=== PATIENT | male | born 1940 | race Caucasian/White ===

== ENCOUNTER 2017-02-22 21:10 | Observation (INO) | payer MEDICARE, BC ==
[~2017-02-22] VITALS: Ht 175.3 cm; Wt 95.0 kg
[2017-02-22 21:13] VITALS: BP 161/75; PULSE 62; RESP 16; TEMP 97.9; O2SAT 97
--- NOTE | 2017-02-22 22:10 | RADRPT ---
EXAM DATE/TIME: 02/22/2017 21:48 [facility] COMPARISON: No previous studies available for comparison. INDICATIONS : Shortness of breath. MEDICAL HISTORY : Diabetes mellitus type II. Hypertension Atrial fibrillation SURGICAL HISTORY : Pacemaker. ENCOUNTER: Initial ACUITY: 1 day PAIN SCORE: 0/10 LOCATION: Bilateral chest. FINDINGS: There is a tiny nodular density in the right mid chest possibly in the bony structures or may be a luann ng nodule. It measures 6 mm. Slight atelectasis is seen in the left lung base. Left subclavian pacer wires are present with tips in the right atrium and right ventricle. Heart and mediastinum are unrema rkable for technique. There are atherosclerotic calcifications of the aorta due to chronic atheroscle rotic disease. CONCLUSION: Possible right lung nodule and noncontrast chest CT is suggested to further characterize. Chayo Jimenez MD on February 22, 2017 at 22:06 Board Certified Radiologist. This report was verified electronically.
[2017-02-22 22:11] VITALS: O2SAT 98
--- NOTE | 2017-02-22 22:12 | PD ---
HPI Chief Complaint: Altered Mental Status Time Seen by Provider: 21:30 Travel History International Travel<30 days: No Contact w/Intl Traveler<30days: No Traveled to known affect area: No History of Present Illness HPI 76-year-old male presents emergency department for evaluation after patient's daughter reported him having a short transient episode of not responding verbally while watching television this evening. Patient's daughter describes him as blank staring during that episode. Patient's daughter states the episode only lasted a minute. The episode resolved spontaneously and the patient denies any pain or abnormal feeling at this time. Patient is visiting here from [place] for the holiday. Patient states that last and is planning on flying back again this . Patient denies any chest pain, shortness breath, fevers, chills, malaise, abdominal pain, nausea, vomiting, diarrhea, lightheadedness or headache. Patient denies any hematuria or dysuria. Patient has medical history of hypertension, diabetes, diabetic neuropathy. Patient had recently had a pacemaker placed in his left upper chest 2 months ago. PFSH Past Medical History Hx Anticoagulant Therapy: Yes (ELIQUIS ) Atrial Fibrillation: Yes COPD: Yes Diabetes: Yes Patient Takes Glucophage: Yes Hypertension: Yes Past Surgical History AICD: Yes Appendectomy: Yes Cardiac Surgery: Yes (AICD ) Cholecystectomy: Yes Genitourinary Surgery: Yes (BLADDER CA ) Tonsillectomy: Yes Social History Alcohol Use: No Tobacco Use: No Substance Use: No Allergies-Medications (Allergen,Severity, Reaction): Coded Allergies: No Known Allergies (Unverified , 02/22/17) Review of Systems Except as stated in HPI: all other systems reviewed are Neg Physical Exam Narrative GENERAL: Well-nourished, well-developed 76-year-old male in no acute distress. Nontoxic appearing. SKIN: Focused skin assessment warm/dry. HEAD: Atraumatic. Normocephalic. EYES: Pupils equal and round. No scleral icterus. No injection or drainage. ENT: No nasal bleeding or discharge. Mucous membranes pink and moist. NECK: Trachea midline. No JVD. CARDIOVASCULAR: Regular rate and rhythm. No murmur appreciated. RESPIRATORY: No accessory muscle use. Clear to auscultation. Breath sounds equal bilaterally. GASTROINTESTINAL: Abdomen soft, non-tender, nondistended. Hepatic and splenic margins not palpable. MUSCULOSKELETAL: No obvious deformities. No clubbing. No cyanosis. No edema. NEUROLOGICAL: Awake and alert. No obvious cranial nerve deficits. Motor grossly within normal limits. Normal speech. PSYCHIATRIC: Appropriate mood and affect; insight and judgment normal. Data Data Last Documented VS Vital Signs Date Time Temp Pulse Resp B/P (MAP) Pulse Ox O2 Delivery O2 Flow Rate FiO2 02/22/17 22:11 98 Room Air 02/22/17 21:13 97.9 62 16 Orders Orders Electrocardiogram (02/22/17 21:38) Prothrombin Time / Inr (Pt) (02/22/17 21:38) Act Partial Throm Time (Ptt) (02/22/17 21:38) Complete Blood Count With Diff (02/22/17 21:38) Comprehensive Metabolic Panel (02/22/17 21:38) Troponin I (02/22/17 21:38) Urinalysis - C+S If Indicated (02/22/17 21:38) Ct Brain W/O Iv Contrast(Rout) (02/22/17 21:38) Chest, Single Ap (02/22/17 21:38) Ecg Monitoring (02/22/17 21:38) Iv Access Insert/Monitor (02/22/17 21:38) Oximetry (02/22/17 21:38) Blood Glucose (02/22/17 21:38) Admit Order (Ed Use Only) (02/22/17 23:13) Labs Laboratory Tests Test 02/22/17 21:52 White Blood Count 4.4 TH/MM3 Red Blood Count 3.82 MIL/MM3 Hemoglobin 11.5 GM/DL Hematocrit 34.6 % Mean Corpuscular Volume 90.7 FL Mean Corpuscular Hemoglobin 30.1 PG Mean Corpuscular Hemoglobin Concent 33.2 % Red Cell Distribution Width 14.3 % Platelet Count 145 TH/MM3 Mean Platelet Volume 9.6 FL Neutrophils (%) (Auto) 51.4 % Lymphocytes (%) (Auto) 31.6 % Monocytes (%) (Auto) 10.7 % Eosinophils (%) (Auto) 4.9 % Basophils (%) (Auto) 1.4 % Neutrophils # (Auto) 2.3 TH/MM3 Lymphocytes # (Auto) 1.4 TH/MM3 Monocytes # (Auto) 0.5 TH/MM3 Eosinophils # (Auto) 0.2 TH/MM3 Basophils # (Auto) 0.1 TH/MM3 CBC Comment DIFF FINAL Differential Comment Prothrombin Time 10.1 SEC Prothromb Time International Ratio 1.0 RATIO Activated Partial Thromboplast Time 23.5 SEC Urine Color YELLOW Urine Turbidity CLEAR Urine pH 5.5 Urine Specific [place] 1.013 Urine Protein NEG mg/dL Urine Glucose (UA) 300 mg/dL Urine Ketones NEG mg/dL Urine Occult Blood NEG Urine Nitrite NEG Urine Bilirubin NEG Urine Urobilinogen LESS THAN 2.0 MG/DL Urine Leukocyte Esterase TRACE Urine WBC 3 /hpf Microscopic Urinalysis Comment CATH-CULT NOT IND Blood Urea Nitrogen 30 MG/DL Creatinine 1.26 MG/DL Random Glucose 175 MG/DL Total Protein 6.5 GM/DL Albumin 3.2 GM/DL Calcium Level 8.6 MG/DL Alkaline Phosphatase 76 U/L Aspartate Amino Transf (AST/SGOT) 12 U/L Alanine Aminotransferase (ALT/SGPT) 20 U/L Total Bilirubin 0.3 MG/DL Sodium Level 141 MEQ/L Potassium Level 4.3 MEQ/L Chloride Level 104 MEQ/L Carbon Dioxide Level 32.3 MEQ/L Anion Gap 5 MEQ/L Estimat Glomerular Filtration Rate 55 ML/MIN Troponin I LESS THAN 0.02 NG/ML MDM Medical Decision Making Medical Screen Exam Complete: Yes Emergency Medical Condition: Yes Differential Diagnosis Differential diagnoses include but not limited to electrolyte abnormality, TIA/ CVA, absence seizure, hypoglycemia Narrative Course Patient placed on monitor and IV obtained. Blood work sent to lab. CBC, CMP, PT/INR and UA ordered and pending. EKG ordered and interpreted. Chest x-ray ordered and pending. CT of the brain ordered and pending. Bedside blood glucose shows 221 CBC shows mild anemia hemoglobin 11.5 CMP shows been in 30, GFR 55, AST 12, glucose 175, hypoalbuminemia 3.2 Troponin less than 0.02 UA shows glucose in the urine and trace esterase Chest x-ray shows possible right lung nodule with recommendation for noncontrast CT for follow-up. CT of the brain shows arachnoid cyst. Patient be admitted to the hospital as a 23 hour observation for further observation and neuro checks. OBI called for admission at this time. Dr Voss called and accepted admission. Patient admitted for obs at this time. Diagnosis Primary Impression: Arachnoid cyst Additional Impression: Transient disorientation Admitting Information Admitting Physician Requests: Observation Oralia Chung Feb 22, 2017 22:12
[2017-02-22 22:29] LABS: AUTOMATED NEUTROPHIL # 2.3 TH/MM3 (1.8-7.7); BASOPHIL # 0.1 TH/MM3 (0-0.2); BASOPHIL % 1.4 % (0.0-2.0); EOSINOPHIL # 0.2 TH/MM3 (0-0.4); EOSINOPHIL % 4.9 % (0.0-4.0); HEMATOCRIT 34.6 % (39.0-51.0); HEMOGLOBIN 11.5 GM/DL (13.0-17.0); LYMPH % 31.6 % (9.0-44.0); LYMPHOCYTE # 1.4 TH/MM3 (1.0-4.8); MEAN CELL VOLUME 90.7 FL (80.0-100.0); MEAN CORPUSCULAR HEMOGLOBIN 30.1 PG (27.0-34.0); MEAN CORPUSCULAR HGB CONC 33.2 % (32.0-36.0); MEAN PLATELET VOLUME 9.6 FL (7.0-11.0); MONO % 10.7 % (0.0-8.0); MONOCYTE # 0.5 TH/MM3 (0-0.9); NEUT % 51.4 % (16.0-70.0); PLATELET COUNT 145 TH/MM3 (150-450); RED BLOOD COUNT 3.82 MIL/MM3 (4.50-5.90); RED CELL DISTRIBUTION WIDTH 14.3 % (11.6-17.2); WHITE BLOOD COUNT 4.4 TH/MM3 (4.0-11.0)
--- NOTE | 2017-02-22 22:31 | RADRPT ---
EXAM DATE/TIME: 02/22/2017 22:20 [facility] COMPARISON: No previous studies available for comparison. INDICATIONS : Altered mental status. RADIATION DOSE: 39.62 CTDIvol (mGy) MEDICAL HISTORY : Cerebrovascular disease. Hypertension. Carcinoma, bladder.COPD Diabetes SURGICAL HISTORY : Defibrillator. Appendectomy.Cholecystectomy. ENCOUNTER: Initial ACUITY: 2 days PAIN SCALE: 0/10 LOCATION: cranial TECHNIQUE: Multiple contiguous axial images were obtained of the head. Using automated exposure control and adj ustment of the mA and/or kV according to patient size, radiation dose was kept as low as reasonably a chievable to obtain optimal diagnostic quality images. DICOM format image data is available electro nically for review and comparison. FINDINGS: There is an arachnoid cyst in the left middle cranial fossae measures 3.7 cm in AP diameter with mild mass effect on the adjacent temporal lobe. There is no evidence for intracranial hemorrhage, edema, or extra-axial fluid collections. The visualized bony structures appear intact. The ventricles are normal size for the patient's age. There are no signs of acute infarction for technique. CONCLUSION: Arachnoid cyst. Chayo Jimenez MD on February 22, 2017 at 22:28 Board Certified Radiologist. This report was verified electronically.
[2017-02-22 22:33] LABS: BILIRUBIN, URINE NEG (NEG); BLOOD, URINE NEG (NEG); GLUCOSE,URINE 300 mg/dL (NEG); KETONE, URINE NEG (NEG); NITRITE,URINE NEG (NEG); PH, URINE 5.5 (5.0-8.5); URINE COLOR YELLOW (YELLW/STRAW); URINE LEUKOCYTE ESTERASE TRACE (NEG)
[2017-02-22 22:38] LABS: ALBUMIN 3.2 GM/DL (3.4-5.0); ALT (GPT) 20 U/L (12-78); AST (GOT) 12 U/L (15-37); BICARBONATE 32.3 MEQ/L (21.0-32.0); BLOOD UREA NITROGEN 30 MG/DL (7-18); CALCIUM 8.6 MG/DL (8.5-10.1); CHLORIDE 104 MEQ/L (98-107); CREATININE 1.26 MG/DL (0.60-1.30); GLOMERULAR FILTRATION RATE 55 ML/MIN (>89); GLUCOSE,RANDOM 175 MG/DL (74-106); SODIUM (NA) 141 MEQ/L (136-145)
[2017-02-22 22:42] LABS: ALKALINE PHOSPHATASE 76 U/L (45-117); TOTAL BILIRUBIN ADULT 0.3 MG/DL (0.2-1.0); TOTAL PROTEIN 6.5 GM/DL (6.4-8.2); TROPONIN I LESS THAN 0.02 NG/ML (0.02-0.05)
[2017-02-22 22:51] LABS: PROTHROMBIN TIME - PATIENT 10.1 SEC (9.8-11.6)
[2017-02-22] MEDS ORDERED: ACETAMINOPHEN 325 MG TAB PO PRN (23:45)
[2017-02-22] MEDS ORDERED: MAGNESIUM HYDROXIDE SUSP 30 ML CUP PO PRN (23:45)
[2017-02-22] MEDS ORDERED: BISACODYL 10 MG SUPP RECTAL PRN (23:45)
[2017-02-22] MEDS ORDERED: ONDANSETRON HCL 4 MG/2 ML VIAL IVP PRN (23:45)
[2017-02-22] MEDS ORDERED: SODIUM CHLORIDE 0.9% FLUSH 10 ML FLUSH IV FLUSH PRN (23:45)
[2017-02-22] MEDS ORDERED: LACTULOSE SYRUP 20 GM/30 ML CUP PO PRN (23:45)
[2017-02-22] MEDS ORDERED: SENNOSIDES 8.6 MG TAB PO PRN (23:45)
[2017-02-22] MEDS ORDERED: NALOXONE HCL 0.4 MG/ML AMP IV PUSH PRN (23:45)
--- NOTE | 2017-02-22 23:57 | HHI.HP ---
[facility] Unknown Admission Diagnosis arachnoid cyst, transient disorientation Diagnoses: Travel History International Travel<30 Days: No Contact w/Intl Traveler <30 Da: No Traveled to Known Affected Are: No History of Present Illness 76-year-old male with a past medical history of CHF (unknown EF), CAD, A. fib anticoagulated on all of this, insulin-dependent diabetes mellitus, and history of alcohol abuse presents to the emergency department for evaluation of seizure- like activity and altered mental status. The patient's daughter reports that she was sitting with the patient on the couch watching television when she started to notice his right arm becoming tremulous and shaking. He then had what she described as "post ictal-like behavior" with altered mental status and confusion that lasted approximately 20 minutes. The patient has no memory of the event. No loss of bowel or bladder function. He has never had an incident like this before. Head CT was significant for an arachnoid cyst in the left middle cranial fossa measuring 3.7 cm in diameter with mild mass effect on the adjacent temporal lobe. Review of Systems Denies fever or chills Denies blurry vision, otorrhea, rhinorrhea Denies sore throat and cough No chest pain, palpitations, shortness of breath No abdominal pain Denies constipation/diarrhea/nausea/vomiting Denies muscle pain/weakness No rashes Past Family Social History Past Medical History CHF with AICD placement 2 months ago, EF unknown CAD A. fib anticoagulated on Toby was Insulin-dependent diabetes mellitus History of bladder and prostate cancer History of alcohol abuse Past Surgical History Cholecystectomy Appendectomy Resection of bladder tumor AICD placement 2 months ago Allergies: Coded Allergies: No Known Allergies (Unverified , 02/22/17) Family History Unknown by patient Social History Patient reports that he quit drinking approximately 6 months ago. His daughter reports this is not the case and that the patient still drinks. Quit tobacco 12 years ago. Denies illicit drugs. Patient and his live in [place]. Physical Exam Vital Signs Vital Signs Date Time Temp Pulse Resp B/P (MAP) Pulse Ox O2 Delivery O2 Flow Rate FiO2 02/22/17 22:11 98 Room Air 02/22/17 21:13 97.9 62 16 161/75 (103) 97 Room Air Physical Exam GENERAL: male lying in bed SKIN: No rashes, ecchymoses or lesions. Cool and dry. HEAD: Atraumatic. Normocephalic. No temporal or scalp tenderness. EYES: Pupils equal round and reactive. Extraocular motions intact. No scleral icterus. No injection or drainage. ENT: Nose without bleeding, purulent drainage or septal hematoma. Throat without erythema, tonsillar hypertrophy or exudate. Uvula midline. Airway patent. NECK: Trachea midline. No JVD or lymphadenopathy. Supple, nontender, no meningeal signs. CARDIOVASCULAR: Regular rate and rhythm without murmurs, gallops, or rubs. RESPIRATORY: Clear to auscultation. Breath sounds equal bilaterally. No wheezes , rales, or rhonchi. GASTROINTESTINAL: Abdomen soft, non-tender, nondistended. No hepato-splenomegaly , or palpable masses. No guarding. MUSCULOSKELETAL: Extremities without clubbing, cyanosis, or edema. No joint tenderness, effusion, or edema noted. No calf tenderness. NEUROLOGICAL: Awake and alert. Cranial nerves II through XII intact. Motor and sensory within normal limits. Five out of 5 muscle strength in all muscle groups. Normal speech. Laboratory Laboratory Tests Test 02/22/17 21:52 White Blood Count 4.4 Red Blood Count 3.82 Hemoglobin 11.5 Hematocrit 34.6 Mean Corpuscular Volume 90.7 Mean Corpuscular Hemoglobin 30.1 Mean Corpuscular Hemoglobin Concent 33.2 Red Cell Distribution Width 14.3 Platelet Count 145 Mean Platelet Volume 9.6 Neutrophils (%) (Auto) 51.4 Lymphocytes (%) (Auto) 31.6 Monocytes (%) (Auto) 10.7 Eosinophils (%) (Auto) 4.9 Basophils (%) (Auto) 1.4 Neutrophils # (Auto) 2.3 Lymphocytes # (Auto) 1.4 Monocytes # (Auto) 0.5 Eosinophils # (Auto) 0.2 Basophils # (Auto) 0.1 CBC Comment DIFF FINAL Differential Comment Prothrombin Time 10.1 Prothromb Time International Ratio 1.0 Activated Partial Thromboplast Time 23.5 Urine Color YELLOW Urine Turbidity CLEAR Urine pH 5.5 Urine Specific [place] 1.013 Urine Protein NEG Urine Glucose (UA) 300 Urine Ketones NEG Urine Occult Blood NEG Urine Nitrite NEG Urine Bilirubin NEG Urine Urobilinogen LESS THAN 2.0 Urine Leukocyte Esterase TRACE Urine WBC 3 Microscopic Urinalysis Comment CATH-CULT NOT IND Blood Urea Nitrogen 30 Creatinine 1.26 Random Glucose 175 Total Protein 6.5 Albumin 3.2 Calcium Level 8.6 Alkaline Phosphatase 76 Aspartate Amino Transf (AST/SGOT) 12 Alanine Aminotransferase (ALT/SGPT) 20 Total Bilirubin 0.3 Sodium Level 141 Potassium Level 4.3 Chloride Level 104 Carbon Dioxide Level 32.3 Anion Gap 5 Estimat Glomerular Filtration Rate 55 Troponin I LESS THAN 0.02 Result Diagram: 02/22/17215102/22/172151 Caprini VTE Risk Assessment Caprini VTE Risk Assessment: Mod/High Risk (score >= 2) Caprini Risk Assessment Model Point Value = 1 Point Value = 2 Point Value = 3 Point Value = 5 Age 41-60 Minor surgery BMI > 25 kg/m2 Swollen legs Varicose veins or History of unexplained or recurrent spontaneous Oral contraceptives or hormone replacement Sepsis (< 1 month) Serious lung disease, including pneumonia (< 1 month) Abnormal pulmonary function Acute myocardial infarction Congestive heart failure (< 1 month) History of inflammatory bowel disease Medical patient at bed rest Age 61-74 Arthroscopic surgery Major open surgery (> 45 min) Laparoscopic surgery (> 45 min) Malignancy Confined to bed (> 72 hours) Immobilizing plaster cast Central venous access Age >= 75 History of VTE Family history of VTE Factor V Leiden Prothrombin [id number] Lupus anticoagulant Anticardiolipin antibodies Elevated serum homocysteine Heparin-induced thrombocytopenia Other congenital or acquired thrombophilia Stroke (< 1 month) Elective arthroplasty Hip, pelvis, or leg fracture Acute spinal cord injury (< 1 month) Prophylaxis Regimen Total Risk Factor Score Risk Level Prophylaxis Regimen 0-1 Low Early ambulation 2 Moderate Order ONE of the following: *Sequential Compression Device (SCD) *Heparin 5000 units SQ BID 3-4 Higher Order ONE of the following medications: *Heparin 5000 units SQ TID *Enoxaparin/Lovenox 40 mg SQ daily (WT < 150 kg, CrCl > 30 mL/min) *Enoxaparin/Lovenox 30 mg SQ daily (WT < 150 kg, CrCl > 10-29 mL/min) *Enoxaparin/Lovenox 30 mg SQ BID (WT < 150 kg, CrCl > 30 mL/min) AND/OR *Sequential Compression Device (SCD) 5 or more Highest Order ONE of the following medications: *Heparin 5000 units SQ TID (Preferred with Epidurals) *Enoxaparin/Lovenox 40 mg SQ daily (WT < 150 kg, CrCl > 30 mL/min) *Enoxaparin/Lovenox 30 mg SQ daily (WT < 150 kg, CrCl > 10-29 mL/min) *Enoxaparin/Lovenox 30 mg SQ BID (WT < 150 kg, CrCl > 30 mL/min) AND *Sequential Compression Device (SCD) Assessment and Plan Assessment and Plan Assessment/plan: 1. Altered mental status/possible seizure EEG pending Head CT significant for arachnoid cyst wild mild mass effect Neurology consulted, appreciate recommendations 2. Insulin-dependent diabetes mellitus Continue home Lantus SSI Monitor blood glucose 3. Atrial fibrillation Continue Eliquis 4. CHF/CAD Continue home medications 5. HTN Continue home medications 6. Alcohol abuse CIWA protocol Monitor for signs of withdrawal FEN Heart healthy ADA diet Electrolytes: monitor and replete prn Charo Dent MD Feb 22, 2017 23:57
[2017-02-23] MEDS ORDERED: LORazepam 1 MG TAB PO PRN
[2017-02-23] MEDS ORDERED: FLUMAZENIL 0.5 MG/5 ML VIAL IV PUSH PRN
[2017-02-23] MEDS ORDERED: DEXTROSE 50% IN WATER 50 ML VIAL(D50) IV PUSH PRN
[2017-02-23] MEDS ORDERED: LORazepam 2 MG/ML VIAL IV PUSH PRN ×4
[2017-02-23] MEDS ORDERED: GLUCAGON 1 MG/ML VIAL OTHER PRN
[2017-02-23] MEDS ORDERED: LORazepam 2 MG TAB PO PRN
[2017-02-23] MEDS ORDERED: BUME2TAB PO (00:06)
[2017-02-23] MEDS ORDERED: APIX5TAB PO (00:06)
[2017-02-23] MEDS ORDERED: AMIO0.1T PO (00:09)
[2017-02-23] MEDS ORDERED: PANT40TA3 PO (00:11)
[2017-02-23] MEDS ORDERED: PARO20TA2 PO (00:12)
[2017-02-23] MEDS ORDERED: GABA300C5 PO (00:13)
[2017-02-23] MEDS ORDERED: METF1000 PO (00:14)
[2017-02-23] MEDS ORDERED: LANTUS2P (00:15)
[2017-02-23] MEDS ORDERED: HYDR-3801 PO (00:15)
[2017-02-23] MEDS ORDERED: VALS1TAB64 PO ×2 (00:16→14:00)
[2017-02-23] MEDS ORDERED: ISOS20TA2 PO (00:16)
[2017-02-23] MEDS ORDERED: LOPE-1 PO (00:17)
[2017-02-23] MEDS ORDERED: ATOR10TA15 PO (00:17)
[2017-02-23] MEDS ORDERED: ASPI1TAB57 PO (00:18)
[2017-02-23] MEDS ORDERED: ASPI81TA81 (00:18)
[2017-02-23] MEDS ORDERED: OMEG1CAP50 (00:19)
[2017-02-23] MEDS ORDERED: CHOL5000 PO (00:20)
[2017-02-23] MEDS ORDERED: COQ150CA (00:20)
[2017-02-23] MEDS ORDERED: D 101000 (00:21)
[2017-02-23] MEDS ORDERED: TURM500C7 (00:22)
[2017-02-23 03:21] VITALS: BP 130/78; PULSE 59; RESP 18; TEMP 97.8; O2SAT 93
[2017-02-23] MEDS ORDERED: HEPARIN SODIUM - SQ 10,000 UNITS/ML VIAL SQ SCH (06:00)
[2017-02-23 07:35] VITALS: BP 166/79; PULSE 60; RESP 18; TEMP 97.5; O2SAT 96
[2017-02-23] MEDS: INSULIN ASPART SUPPLEMENTAL SCALE SQ SCH ×2 (08:00→12:57)
[2017-02-23 08:28] LABS: AUTOMATED NEUTROPHIL # 2.3 TH/MM3 (1.8-7.7); BASOPHIL # 0.1 TH/MM3 (0-0.2); BASOPHIL % 1.7 % (0.0-2.0); EOSINOPHIL # 0.2 TH/MM3 (0-0.4); EOSINOPHIL % 5.4 % (0.0-4.0); HEMATOCRIT 33.2 % (39.0-51.0); HEMOGLOBIN 11.2 GM/DL (13.0-17.0); LYMPH % 28.8 % (9.0-44.0); LYMPHOCYTE # 1.2 TH/MM3 (1.0-4.8); MEAN CELL VOLUME 91.1 FL (80.0-100.0); MEAN CORPUSCULAR HEMOGLOBIN 30.8 PG (27.0-34.0); MEAN CORPUSCULAR HGB CONC 33.8 % (32.0-36.0); MEAN PLATELET VOLUME 10.1 FL (7.0-11.0); MONO % 9.8 % (0.0-8.0); MONOCYTE # 0.4 TH/MM3 (0-0.9); NEUT % 54.3 % (16.0-70.0); PLATELET COUNT 136 TH/MM3 (150-450); RED BLOOD COUNT 3.64 MIL/MM3 (4.50-5.90); RED CELL DISTRIBUTION WIDTH 14.4 % (11.6-17.2); WHITE BLOOD COUNT 4.2 TH/MM3 (4.0-11.0)
[2017-02-23 08:54] LABS: BICARBONATE 30.3 MEQ/L (21.0-32.0); CALCIUM 8.7 MG/DL (8.5-10.1); CREATININE 1.12 MG/DL (0.60-1.30)
[2017-02-23] MEDS ORDERED: VALSARTAN 80 MG TAB PO SCH (09:00)
[2017-02-23] MEDS ORDERED: AMIODARONE 200 MG TAB PO SCH (09:00)
[2017-02-23] MEDS ORDERED: BUMETANIDE 1 MG TAB PO SCH (09:00)
[2017-02-23] MEDS ORDERED: ASPIRIN EC 81 MG TABEC PO SCH (09:00)
[2017-02-23] MEDS ORDERED: APIXABAN 5 MG TABLET PO SCH (09:00)
[2017-02-23] MEDS ORDERED: SODIUM CHLORIDE 0.9% FLUSH 10 ML FLUSH IV FLUSH SCH (09:00)
[2017-02-23] MEDS ORDERED: GABAPENTIN 300 MG CAP PO SCH (09:00)
[2017-02-23] MEDS ORDERED: hydrALAZINE HCL 50 MG TAB PO SCH (09:00)
[2017-02-23] MEDS ORDERED: DOCUSATE SODIUM 50 MG/SENNA 8.6 MG TAB PO SCH (09:00)
[2017-02-23] MEDS ORDERED: PARoxetine HCL 20 MG TAB PO SCH (09:00)
[2017-02-23] MEDS ORDERED: PANTOPRAZOLE SOD 40 MG DELAYED RELEASE TAB PO SCH (09:00)
[2017-02-23] MEDS: ISOSORBIDE DINITRATE 20 MG TAB PO SCH ×2 (10:00→13:00)
[2017-02-23] MEDS ORDERED: levETIRAcetam INJ 100 ML IV ONE (10:30)
--- NOTE | 2017-02-23 11:05 | MB ---
cc: JORDANA CHOUDHARY M.D. DATE OF CONSULTATION 02/23/2017 REASON FOR CONSULTATION The patient is a 76-year-old seen in neurological consultation in regards to an acute neurologic change. HISTORY OF PRESENT ILLNESS The patient is from [place] and is visiting here with his daughter. He was at the daughter's house yesterday when he had a sudden neurologic change. The daughter is an emt. The patient's was in the room as well and observed that he was having some flailing right upper extremity movement and seemed to be poorly responsive. The daughter observed some twitching of the upper body and the patient responsiveness seemed to be diminished. He was sort of lethargic and postictal after the event that lasted a short period of time. There was no major tonic-clonic activity. There was no incontinence. No history of seizures in the past. The patient was brought to the hospital by the family. A CT brain is showing an arachnoid cyst in the middle cranial fossa causing some mass effect mostly in the temporal lobe. PAST MEDICAL HISTORY The patient had a recent pacemaker in November 2016. He has a history of atrial fibrillation and hypertension. History of bladder and prostate cancer. He takes Eliquis and aspirin. He is also diabetic. NEUROLOGICAL EXAMINATION On exam he is awake, reasonably alert and oriented. He is a bit slow to respond and the family describes that this seems to be his baseline. His ocular movements are full. Visual murguia are full. There is no hemiparesis. No evidence of tongue injury. He has reasonable strength throughout. Reflexes are present at the elbows and knees, absent versus trace at the ankles. Plantar response is flexor bilaterally. LABORATORY DATA White count today 4.2, hemoglobin 11.2, platelets 136. INR 1.0. Sodium and potassium normal. BUN 26, creatinine 1.1. BUN was 30 yesterday and creatinine 1.26. Urinalysis is negative. IMAGING CT brain was reviewed. Chest x-ray showed possible right lung nodule. Noncontrast chest CT suggested further evaluation. 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 The CT brain shows a relatively large arachnoid cyst on the left middle cranial fossa causing some mild mass effect. There is a history of multiple medical problems and there is a possible nodule on the right lung. PLAN/RECOMMENDATIONS Neurologic-wang an EEG will be obtained and I will start him on Keppra one gram IV bolus followed by 500 mg twice a day. Will check a carotid ultrasound as well. Will let the medicine team determine the need for further chest evaluation. I have discussed this with the patient and the family and I reiterated to them that it is recommended he does not drive for at least six months as is the law in [place] and he should follow-up with his physicians in [place] as he is planning on going back to [place] later this week. I will follow the neurological course. Thank you for asking us to assist in his care. MD CAROLA Philip/BT /10:08 AM /10:34 AM
[2017-02-23 12:27] VITALS: BP 130/75; PULSE 53; RESP 18; TEMP 97.7; O2SAT 95
--- NOTE | 2017-02-23 12:28 | RADRPT ---
EXAM DATE/TIME: 02/23/2017 11:05 [facility] COMPARISON: No previous studies available for comparison. INDICATIONS : Transient ischemic attack. MEDICAL HISTORY : Hypercholesterolemia. Hypertension. Transient ischemic attack. A-fib. Diabetes. Bladder cancer. CHF . SURGICAL HISTORY : Tonsillectomy. Appendectomy. Cholecystectomy. AICD. Bladder cancer surgery. ENCOUNTER: Initial ACUITY: 1 day PAIN SCORE: 0/10 LOCATION: Bilateral neck PEAK SYSTOLIC VELOCITIES (cm/sec): ICA/CCA RATIO: Right: 1.5 Left: 0.8 ICA: Right: 116 Left: 68 CCA: Right: 80 Left: 83 ECA: Right: 161 Left: 119 VERTEBRAL: Right: 33 antegrade Left: 51 antegrade Elevated flow velocities and ICA/CCA ratios have been found to correlate with increased degrees of vessel stenosis, calculated as percentage of diameter relative to a normal segment of distal ICA/CCA FINDINGS: There is mild to moderate visible plaque formation bilaterally without evidence for hemodynamically s ignificant stenosis. Vertebral artery flow is antegrade. CONCLUSION: 1. Mild to moderate visible plaque without hemodynamically significant stenosis. Isac Joaquin MD on February 23, 2017 at 12:26 Board Certified Radiologist. This report was verified electronically.
[2017-02-23] MEDS ORDERED: ISOS60TA PO (13:55)
[2017-02-23] MEDS ORDERED: INSU1INJ5 SQ (14:00)
[2017-02-23] MEDS ORDERED: METO25TA3 PO (14:00)
[2017-02-23] MEDS ORDERED: LEVE500 PO (15:27)
--- NOTE | 2017-02-23 15:35 | HHI.DS ---
Discharge Summary Admission Date Feb 22, 2017 at 23:16 Discharge Date: Feb 23, 2017 Admitting Diagnosis arachnoid cyst, transient disorientation (1) Seizure ICD Code: R56.9 - Unspecified convulsions Diagnosis: Principal (2) Arachnoid cyst ICD Code: G93.0 - Cerebral cysts Diagnosis: Secondary Status: Acute Procedures EEG Brief History - From Admission 76-year-old male with a past medical history of CHF (unknown EF), CAD, A. fib anticoagulated on all of this, insulin-dependent diabetes mellitus, and history of alcohol abuse presents to the emergency department for evaluation of seizure- like activity and altered mental status. The patient's daughter reports that she was sitting with the patient on the couch watching television when she started to notice his right arm becoming tremulous and shaking. He then had what she described as "post ictal-like behavior" with altered mental status and confusion that lasted approximately 20 minutes. The patient has no memory of the event. No loss of bowel or bladder function. He has never had an incident like this before. Head CT was significant for an arachnoid cyst in the left middle cranial fossa measuring 3.7 cm in diameter with mild mass effect on the adjacent temporal lobe. CBC/BMP: 02/23/17 0700 02/23/17 0700 Significant Findings Laboratory Tests Test 02/22/17 21:52 02/23/17 07:00 Red Blood Count 3.82 MIL/MM3 (4.50-5.90) 3.64 MIL/MM3 (4.50-5.90) Hemoglobin 11.5 GM/DL (13.0-17.0) 11.2 GM/DL (13.0-17.0) Hematocrit 34.6 % (39.0-51.0) 33.2 % (39.0-51.0) Platelet Count 145 TH/MM3 (150-450) 136 TH/MM3 (150-450) Monocytes (%) (Auto) 10.7 % (0.0-8.0) 9.8 % (0.0-8.0) Eosinophils (%) (Auto) 4.9 % (0.0-4.0) 5.4 % (0.0-4.0) Activated Partial Thromboplast Time 23.5 SEC (24.3-30.1) Urine Glucose (UA) 300 mg/dL (NEG) Urine Leukocyte Esterase TRACE (NEG) Blood Urea Nitrogen 30 MG/DL (7-18) 26 MG/DL (7-18) Random Glucose 175 MG/DL (74-106) Albumin 3.2 GM/DL (3.4-5.0) Aspartate Amino Transf (AST/SGOT) 12 U/L (15-37) Carbon Dioxide Level 32.3 MEQ/L (21.0-32.0) Estimat Glomerular Filtration Rate 55 ML/MIN (>89) 63 ML/MIN (>89) Troponin I LESS THAN 0.02 NG/ML Hospital Course Mr. Prado is a 76 year old male. He was admitted for likely seizure with post ictal state. Reviewed by Neurology, he has been recommended to be on Keppra 500mg BID. He has also been recommended not to drive. No further seizures while monitored in the hospital. Medically stable for discharge to home after cleared by Neurology. Pt Condition on Discharge: Stable Discharge Disposition: Discharge Home Discharge Time: <= 30 minutes Discharge Instructions DIET: Follow Instructions for: As Tolerated, No Restrictions Activities you can perform: Regular-No Restrictions Other Activity Instructions: Avoid Driving for now, per neurology recommendations Follow up Referrals: Neurology - 2 Weeks with Sony Vences MD PCP Follow-up - 2 Weeks New Medications: Levetiracetam (Keppra) 500 Mg Tab 500 MG PO BID for Control Seizures, #60 TAB 0 Refills Continued Medications: Amiodarone (Amiodarone) 100 Mg Tab 100 MG PO DAILY for Regulate Heart Beat, #30 TAB 0 Refills Apixaban (Eliquis) 5 Mg Tab 5 MG PO BID for Blood Clot Prevention, #60 TAB [address] (Aspirin 81) 81 Mg Tabdr 81 MG PO DAILY, TAB 0 Refills Atorvastatin (Atorvastatin) 10 Mg Tab 10 MG PO HS for Cholesterol Management, #30 TAB 0 Refills Bumetanide (Bumetanide) 2 Mg Tab 2 MG PO DAILY, TAB 0 Refills Cholecalciferol (Vitamin D3) 5,000 Unit Cap 5000 UNITS PO DAILY for Nutritional Supplement, #30 CAP 0 Refills Cholecalciferol (D 1000) 1,000 Unit Cap 1000 Coenzyme Q10 (Ubidecarenone) (Coq10) 50 Mg Cap 200 Gabapentin (Gabapentin) 300 Mg Cap 300 MG PO BID, #60 CAP 0 Refills Hydralazine (Hydralazine) 100 Mg Tab 50 MG PO BID for Blood Pressure Management, TAB 0 Refills Take with meals Insulin Detemir Inj (Levemir Flextouch Pen Inj) 300 unit/3 ML Pen 70 UNITS SQ DAILY for Blood Sugar Management, PEN 0 Refills Insulin Glargine Inj (Lantus Inj) 100 Unit/Ml Inj Isosorbide Mononitrate ER (Isosorbide Mononitrate ER) 60 Mg Tab 60 MG PO DAILY@1600 for Prevent Chest Pain, #30 TAB 0 Refills Loperamide (Imodium A-D) 2 Mg Capsule 2 MG PO Q6H PRN for DIARRHEA, #30 CAP 0 Refills Metformin (Metformin) 1,000 Mg Tab 1000 MG PO BIDPC for Blood Sugar Management, #60 TAB 0 Refills Metoprolol Tartrate (Metoprolol Tartrate) 25 Mg Tab 25 MG PO DAILY, #30 TAB 0 Refills [place]-3 Fatty Acids ([place] 3 500 500 mg) 500 Mg (200 Mg-300 Mg)-1,000 Mg Cap 500 Pantoprazole (Pantoprazole) 40 Mg Tab 40 MG PO DAILY for Reflux, #30 TAB 0 Refills Paroxetine (Paroxetine) 20 Mg Tab 20 MG PO DAILY, #30 TAB 0 Refills Turmeric Root Extract (Turmeric) 500 Mg Capsule 600 Valsartan (Valsartan) 80 Mg Tab 80 MG PO DAILY, #30 TAB 0 Refills Rigo Lopez MD Feb 23, 2017 15:35
[2017-02-23] MEDS ORDERED: ISOSORBIDE MONONITRATE 60 MG TAB PO SCH (16:00)
[2017-02-23 16:14] VITALS: BP 140/79; PULSE 65; RESP 18; TEMP 98; O2SAT 95
--- NOTE | 2017-02-23 16:31 | MG ---
cc: CCList Sex: M DATE OF STUDY: 02/23/2017 Test: TECHNIQUE 17 channel EEG. DESCRIPTION Background rhythm, symmetrical alpha rhythm, frequency is 8-10 Hz, amplitude is 10-20 microvolts. There are no lateralizing features. During drowsiness there is mild slowing in the theta range. The patient does fall asleep and sleep spindles are identified. There are no epileptiform features. Photic stimulation results are normal driving response. INTERPRETATION This a normal EEG. MD MURTAZA Henry/JENNA /3:38 PM /4:11 PM
--- NOTE | 2017-02-23 16:48 | EKG ---
Date Performed: 02/22/2017 Time Performed: 21:48:35 PTAGE: 76 years EKG: ELECTRONIC ATRIAL PACEMAKER MODERATE INTRAVENTRICULAR CONDUCTION DELAY NONSPECIFIC ST & T[address] ABNORMALITY ABNORMAL RHYTHM ECG NO PREVIOUS TRACING DOCTOR: Evelin Gill Interpretating Date/Time 02/23/2017 16:46:45
[2017-02-23] MEDS ORDERED: levETIRAcetam 500 MG TAB PO SCH (21:00)
[2017-02-23] MEDS ORDERED: INSULIN DETEMIR 100 UNITS/ML VIAL SQ SCH (21:00)
[2017-02-23] MEDS ORDERED: ATORVASTATIN 10 MG TAB PO SCH (21:00)
[2017-02-24] MEDS ORDERED: VALSARTAN 80 MG TAB PO SCH (09:00)
== END 2017-02-23 18:07 | disposition home or self-care (01) ==
LOC: NEPC 21:10 → NEDA 23:16 → NEPFCDU 02-23 00:49
PROVIDERS: ADMIT Internal Medicine; ATTEND Internal Medicine
DX: R56.9 Unspecified convulsions (principal); G93.0 Cerebral cysts; I11.0 Hypertensive heart disease with heart failure; I50.9 Heart failure, unspecified; I48.91 Unspecified atrial fibrillation; I65.23 Occlusion and stenosis of bilateral carotid arteries; J44.9 Chronic obstructive pulmonary disease, unspecified; I25.10 Atherosclerotic heart disease of native coronary artery without angina pectoris; E11.40 Type 2 diabetes mellitus with diabetic neuropathy, unspecified; D64.9 Anemia, unspecified; E88.09 Other disorders of plasma-protein metabolism, not elsewhere classified; Z79.4 Long term (current) use of insulin; Z85.46 Personal history of malignant neoplasm of prostate; Z85.51 Personal history of malignant neoplasm of bladder; Z87.891 Personal history of nicotine dependence; Z95.810 Presence of automatic (implantable) cardiac defibrillator
CPT/HCPCS: 70450; 71045; 80048; 80053; 81001; 82948; 84484; 85025; 85610; 85730; 93005; 93880; 95819; 96365; 96372; 99285; G0378; J1815; J1953